=== PATIENT | male | born 2000 | race African-American/Black ===

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

== ENCOUNTER 2021-04-28 22:12 | Emergency (ER) | payer BC ==
[2021-04-28] MEDS ORDERED: Lidocaine Viscous Sol 2% 15 ml UD Cup ONE (22:24)
== END 2021-04-28 22:50 | disposition home or self-care (01) ==
LOC: MADERS 22:12
DX: T16.1XXA Foreign body in right ear, initial encounter (principal)
CPT/HCPCS: 69200

== ENCOUNTER 2021-08-31 23:29 | Emergency (ER) | payer BC ==
[2021-08-31] MEDS ORDERED: Tetracaine 0.5% PF 4 ML BOT ONE (23:47)
[2021-08-31] MEDS ORDERED: Dexamethasone 4 MG TAB ONE (23:49)
[2021-08-31] MEDS ORDERED: Proparacaine 0.5% Opth 15 ML BOT ONE (23:49)
== END 2021-09-01 00:28 | disposition home or self-care (01) ==
LOC: MADERS 23:29
DX: H16.8 Other keratitis (principal); F17.210 Nicotine dependence, cigarettes, uncomplicated
CPT/HCPCS: 99283; J8540

== ENCOUNTER 2023-09-24 23:22 | Emergency (ER) | payer BC ==
[~2023-09-24 23:22] MED LIST: Iopamidol 370 76% 100 ML VIAL ONE
[2023-09-24 23:57] LABS: Hematocrit 46.3 % (42.0-52.0); Hemoglobin 15.3 g/dL (14.0-18.0); Mean Corpuscular Hemoglobin 26.5 pg (27.0-31.0); Mean Corpuscular Volume 80.3 fl (78.0-98.0); Mean Platelet Volume 8.3 fL (7.4-10.4); Platelet Count 238 10x3/uL (130-400); RBC Distribution Width 12.5 % (11.5-14.5); Red Blood Cell (RBC) Count 5.77 mill/uL (4.70-6.10); White Blood Cell (WBC) Count 9.2 10x3/uL (4.8-10.8)
[2023-09-25 00:05] LABS: ALT (SGPT) 31 U/L (8-55); AST (SGOT) 29 U/L (5-34); Albumin 4.1 g/dL (3.5-5.0); Alkaline Phosphatase 39 U/L (40-110); Anion Gap 14 mmol/L (10-20); BUN (Urea Nitrogen) 9 mg/dL (8.9-20.6); Bilirubin, Total 0.4 mg/dL (0.2-1.2); Calc. Creatinine Clearance 0 mL/min (70-130); Calcium 9.7 mg/dL (7.8-10.44); Carbon Dioxide 23 mmol/L (22-29); Chloride 106 mmol/L (98-107); Estimated GFR 102; Globulin 3.7 g/dL (2.4-3.5); Glucose 102 mg/dL (70-105); Potassium 3.8 mmol/L (3.5-5.1); Protein, Total 7.8 g/dL (6.0-8.3); Sodium 139 mmol/L (136-145)
[2023-09-25 00:09] LABS: Band 1 % (5-11); Eosinophils 1 % (0-10); Lymphocytes 24 % (21-51); MDiff Complete? YES; Monocytes 9 % (0-10); Neutrophil 65 % (42-75); Platelet Adequacy Comment Appears Adequate
[2023-09-25] MEDS ORDERED: Lidocaine 1% w/Epinephrine 1:100K 20 ML VIAL ONE (00:33)
== END 2023-09-25 01:05 | disposition home or self-care (01) ==
LOC: MADERS 23:22
DX: L05.01 Pilonidal cyst with abscess (principal); F17.290 Nicotine dependence, other tobacco product, uncomplicated
CPT/HCPCS: 10080; 72193; 80053; 85025; 87070; 87205; Q9967

== ENCOUNTER 2023-09-28 12:17 | Emergency (ER) | payer BC | END 2023-09-28 13:23 | disposition home or self-care (01) | LOC: MADERS 12:17 | DX: Z48.00 Encounter for change or removal of nonsurgical wound dressing (principal); F17.290 Nicotine dependence, other tobacco product, uncomplicated | CPT/HCPCS: 99282 ==

== ENCOUNTER 2023-10-01 13:21 | Emergency (ER) | payer BC | END 2023-10-01 14:00 | disposition home or self-care (01) | LOC: MADERS 13:21 | DX: Z48.00 Encounter for change or removal of nonsurgical wound dressing (principal); F17.290 Nicotine dependence, other tobacco product, uncomplicated | CPT/HCPCS: 99282 ==